=== PATIENT | female | born 2000 | race Caucasian/White ===

== ENCOUNTER 2020-11-01 14:26 | Emergency (ER) | payer BC ==
[2020-11-01] MEDS ORDERED: ZOFRAN ODT 4 MG4 MG PO (16:39)
[2020-11-01] MEDS ORDERED: MACROBID 100 M100 MG PO (16:39)
[2020-11-01] MEDS ORDERED: IBUPROFEN800 MG PO (16:39)
== END 2020-11-01 16:52 | disposition home or self-care (01) ==
LOC: ER1 14:26
DX: G43.909 Migraine, unspecified, not intractable, without status migrainosus (principal); N39.0 Urinary tract infection, site not specified
CPT/HCPCS: 70450; 81001; 87086; 96372; 99284; J0696; J0780; J1885; J2060